=== PATIENT | male | born 1965 | race Caucasian/White ===

== ENCOUNTER → 2016-09-09 | Outpatient (CLI) | payer OTHER ==
[~2016-09-09] MED LIST: CIPRO PO; CRESTOR; HIGH BP MED; HYDROCODON-ACE1 EAC7 PO; METRONIDAZOLE PO
--- NOTE | ~2016-09-09 | CR63 ---
[facility] A Service of [facility] RADIOLOGY TEXT RESULTS PATIENT: JERED FOX LOCATION: [facility] : 61 UNIT #: [id number] AGE: [address]: CELESTINA MIRANDA APRN SEX: M ORDER DR: [id number] [facility] [address] [place], [place] [address] [id number] O MR#: [id number] Acc #: [id number] NAME: JERED FOX : 1965 SEX: M STUDY DATE/TIME: 09/09/2016 17:00 UNIT: [facility] ROOM: STUDY DESCRIPTION: CR Chest 2 View Attending Physician: Ekaterina Miranda M.D. Referring Physician: Damon Teague M.D. Ordering Physician: Ekaterina Miranda M.D. Primary Care Physician: Primary Care Physician No MEDICAL IMAGING REPORT This report is preliminary unless electronic signature is present EXAM Chest PA and lateral, 09/09/2016 HISTORY Coughing up bloody sputum for 1 week with chest congestion. Benign essential hypertension, asthma. FINDINGS PA and lateral examination of the chest upright shows a good expansion of the parenchyma with a normal distribution of the pulmonary vascularity. There is no indication of congestion, effusion, infiltrate, tumor, or nodular density. The pleural reflections and diaphragmatic contours are normal. The cardiac silhouette and mediastinal anatomy is within normal limits. IMPRESSION Normal chest. Dictated by... Horace Serrano M.D. THIS IS AN ELECTRONICALLY VERIFIED REPORT Horace Serrano M.D. at 09/10/2016 5:04 PM TICO/sha TD: 09/10/2016 13:02 JOB #: [id number] MEDICAL IMAGING REPORT Page 1 of 1 COPY
== END | disposition home or self-care (01) ==
LOC: CRAD 16:45
DX: R04.2 Hemoptysis (principal)
CPT/HCPCS: 71020